=== PATIENT | female | born 1985 | race Caucasian/White ===

== ENCOUNTER 2018-07-24 06:23 | Inpatient (IN) ==
[2018-07-24] MEDS ORDERED: PEPCID ONE (06:56)
[2018-07-24] MEDS ORDERED: LR 1,000 ML ONE ×3 (06:56→15:30)
[2018-07-24] MEDS ORDERED: REGLAN ONE (06:56)
[2018-07-24] MEDS ORDERED: KEFZOL 2 GM/D5W 2 GM/50 ML IVPB ONE (06:56)
[2018-07-24] MEDS ORDERED: XYLOCAINE-MPF 2% ONE (07:48)
[2018-07-24] MEDS ORDERED: ROBINUL ONE ×2 (07:48→09:04)
[2018-07-24] MEDS ORDERED: DIPRIVAN 1% ONE (07:48)
[2018-07-24] MEDS ORDERED: SENSORCAINE-MPF 0.5%/EPI 1:200,000 ONE (08:39)
[2018-07-24] MEDS ORDERED: NEOSPORIN G.U. IRRIGANT ONE (08:39)
[2018-07-24] MEDS ORDERED: ZOFRAN ONE (09:04)
[2018-07-24] MEDS ORDERED: OFIRMEV 1000 MG/ISOTONIC SOLN 1,000 MG/100 ML BOTTLE ONE (09:04)
[2018-07-24] MEDS ORDERED: DECADRON ONE (09:04)
[2018-07-24] MEDS ORDERED: TORADOL ONE (09:04)
[2018-07-24] MEDS ORDERED: FENTANYL ONE (09:08)
--- NOTE | 2018-07-24 10:58 | OPERATIVE NOTE ---
PROCEDURE DATE: 07/24/2018 PREOPERATIVE DIAGNOSIS: Left lateral tibial plateau fracture, impacted. POSTOPERATIVE DIAGNOSIS: Left lateral tibial plateau fracture, impacted. PROCEDURE PERFORMED: Open reduction and internal fixation of left lateral tibial plateau fracture. ANESTHESIA: General. SURGEON: Luca Mckee MD. FERRY HAND: Jaclyn Desir PA-C. COMPLICATIONS: None. BLOOD LOSS: Minimal. TOURNIQUET TIME: Approximately an hour and a half. DESCRIPTION OF PROCEDURE: The patient was brought to the operative suite and placed in the supine position. After successful administration of general anesthesia, a well-padded tourniquet was placed on the left proximal thigh. The left lower extremity was prepped and draped in the usual sterile fashion. Leg was exsanguinated. Tourniquet insufflated to 350 torr. A longitudinal incision was made overlying the lateral aspect of the knee, dissecting sharply through the skin down to the fascia. Then the fascia was incised 1 cm lateral to the tibial border, extending proximally. Then the muscle belly was elevated off the lateral border of the tibia, exposing the fracture site. The fracture of the lateral plateau was flipped open to allow us to elevate the impacted portion of the tibia. Then the lateral portion of the tibial plateau was then placed back in its anatomic position, reducing the fracture. Excellent reduction was obtained on AP and lateral images. It was held in place with a K-wire. Then a Synthes locking plate was placed with 4 locking screws proximally at the cortex, and then 3 bicortical screws distally, 2 of them locking. Excellent reduction of the fracture was obtained in AP, lateral, and oblique images. The lateral meniscus was reattached laterally through the drill holes in the plate. The fascia was closed with 0 Vicryl. A fasciotomy was performed. A drain was placed deep to the fascia as well as superficially, exiting distally. Then the skin edge was approximated with 2-0 Vicryl. Skin was closed with skin maggy. Prior to closure, the wound was copiously irrigated with normal saline containing irrigant and Vashe irrigation. A sterile dressing was applied. The patient tolerated the procedure well and without complications. At the end of the procedure, all counts were correct x2. The patient was transported to the recovery room in stable condition. cc: Luca Mckee MD
[2018-07-24] MEDS ORDERED: NORCO-10 ONE (15:56)
[2018-07-24] MEDS ORDERED: DILAUDID IV PRN (16:47)
[2018-07-24] MEDS ORDERED: NORCO-7.5 PO PRN (17:00)
[2018-07-24] MEDS ORDERED: NORCO-5 PO PRN (17:00)
[2018-07-24] MEDS: LR 1,000 ML IV SCH (19:00)
[2018-07-24] MEDS: NORCO-10 PO PRN (20:25)
[2018-07-24] MEDS: ZOCOR PO SCH (22:31)
[2018-07-24] MEDS: CELEXA PO SCH (22:31)
[2018-07-25] MEDS: NORCO-10 PO PRN ×4 (05:20→23:31)
--- NOTE | 2018-07-25 08:34 | PROGRESS NOTE ---
DATE: 07/25/2018 SUBJECTIVE: Reji Dao, a 33-year-old female who is postoperative day 1 from an ORIF of her tibial plateau. She has no complaints other than soreness. She has not had any physical therapy yet or ambulation. She has had minimal output from her drain. OBJECTIVE: General: She is a well-developed, well-nourished female. She is alert, oriented, and cooperative exam. Extremities: Her leg is neurovascularly intact. ASSESSMENT: Stable tibial plateau ORIF. PLAN: We will work with Physical Therapy today. I am going to make her a full admission. Hopefully, she can go home tomorrow or later in the week. cc: Luca Mckee MD
[2018-07-25] MEDS: PERIDEX MT SCH ×2 (10:25→20:50)
[2018-07-25] MEDS: LR 1,000 ML IV SCH (17:08)
[2018-07-25] MEDS: ZOCOR PO SCH (20:50)
[2018-07-25] MEDS: CELEXA PO SCH (20:50)
[2018-07-26] MEDS: NORCO-10 PO PRN ×2 (07:24→12:03)
[2018-07-26] MEDS: PERIDEX MT SCH (08:25)
--- NOTE | 2018-07-26 13:48 | PROGRESS NOTE ---
DATE: 07/26/2018 SUBJECTIVE: Shefali Dao is a 33-year-old female who is postoperative day 2 from an ORIF of her left lateral tibial plateau fracture. She complains only of stiffness and minimal pain. OBJECTIVE: She is a well-developed, well-nourished female. She is alert, oriented, and cooperative to exam. She has early range of motion of her knee. There is no knee effusion. Her incision is healing nicely. There is no sign of infection. IMPRESSION: Stable left lateral tibial plateau fracture open reduction internal fixation. PLAN: We will discharge her to home with instructions to return to see Dr. Mckee next . cc: Luca Mckee MD
--- NOTE | 2018-07-26 13:53 | DISCHARGE SUMMARY ---
ADMISSION DATE: 07/25/2018 DISCHARGE DATE: 07/26/2018 DISCHARGE DIAGNOSIS: Left tibial plateau fracture status post open reduction internal fixation. DISCHARGE MEDICATIONS: See discharge medication list. DISPOSITION: The patient discharged home with instructions for touchdown weightbearing. Instructed to return to see Dr. Mckee next . HOSPITAL COURSE: On the day of admission, patient underwent open reduction internal fixation of left lateral tibial plateau fracture. At discharge, she is afebrile tolerating a regular diet, ambulating with physical therapy greater than 30 feet. Her wound is clean, dry, and intact without sign of infection. Her leg and calf are soft without sign of deep venous thrombosis. She is discharged to rehab in stable condition with instructions to follow up as described above. cc: [facility] Luca Mckee MD
[2018-07-26 15:02] VITALS: BP 107/56
== END 2018-07-26 17:07 | disposition home or self-care (01) | DRG 494 ==
LOC: PAT 06:23 → OPS 06:23 → 4N 06:23
PROVIDERS: ADMIT Orthopaedic Surgery; ATTEND Orthopaedic Surgery
CPT/HCPCS: 76000; 94761; 94799; 97116; 97162; A9270; C1713; J0131; J0690; J1100; J1885; J2405; J3010; J7120